=== PATIENT | female | born 2000 | race Caucasian/White ===

== ENCOUNTER 2020-10-03 10:44 | Emergency (ER) | payer MEDICAID, SELFPAY ==
--- NOTE | 2020-10-03 10:54 | ED_ITS ---
HPI - General Adult General Chief complaint: ETOH/Substance Use Stated complaint: crisis/seeking detox Time Seen by Provider: 10/03/20 10:53 Source: patient and EMS Mode of arrival: EMS Limitations: no limitations History of Present Illness HPI narrative: requesting detox from multiple drugs - has been using x 1 year complaint: wants detox Onset (ago): day(s) (today) Relieving factors: none Exacerbating factors: other (drug use) Associated symptoms: denies other symptoms Treatments prior to arrival: none Related Data Allergies Allergy/AdvReac Type Severity Reaction Status Date / Time diphenhydramine Allergy Unknown Unknown Verified 10/03/20 10:55 [From Benadryl] Penicillins Allergy Unknown Unknown Verified 10/03/20 10:55 Review of Systems Review of Systems: Constitutional : No Weight loss, No Fever, No Chills, No Fatigue, No Malaise ENT/Mouth : No sore throat, No Rhinorrhea Eyes: No Eye Pain, No Swelling, No Redness Cardiovascular : No Chest Pain, No SOB, No Dyspnea on Exertion, No Orthopnea, No Edema, No Palpitations Respiratory : No Cough, No Sputum, No Wheezing Gastrointestinal : No Nausea, No Vomiting, No Diarrhea, No Constipation, No abdominal Pain, No Hematochezia, No Melena Genitourinary : No Dysuria, No Urinary Frequency, No Hematuria, Musculoskeletal : No joint pain, No Myalgias, No Joint Swelling Skin : No Skin Lesions, No rash Neuro : No Weakness, No Numbness, No Dizziness, No Headache Psych : pos Anxiety/Panic, No Depression, no SI Heme/Lymph: No Bruising, No Bleeding,No Lymphadenopathy Endocrine : No Polyuria, No Polydipsia All other systems reviewed and are negative PMFSH Past Medical History Attestation statement: The following information was validated with the patient. Medical History Anxiety Bipolar 1 disorder Borderline personality disorder Depression Social History Social History (Updated 10/03/20 @ 11:22 by Ninfa Zayas DO) Alcohol intake: current Alcohol intake frequency: a few times a week Patient Tobacco Use Status: Current everyday Tobacco user Use of substances other than those prescribed or required for medical reasons: Yes Substance Use Type: Crack/Cocaine, Heroin, Marijuana and Other Substance Use Type Other:: pcp Substance Use Frequency: Daily Advance Directives: No Advance Directives Information Provided: Yes Physical Exam Vital Signs: Vital Signs: Last Vital Signs Temp 96.0 F L 10/03/20 11:01 Pulse 86 10/03/20 11:01 Resp 18 10/03/20 11:01 BP 106/63 10/03/20 11:01 Pulse Ox 99 10/03/20 11:01 Body Mass Index 24.3 Appearance: Alert. Oriented X3. No acute distress. Anxious in and out of the bathroom, asking repeatedly for ativan Eyes: Pupils equal, round and reactive to light. ENT: Pharynx normal. Neck: Normal inspection. Neck supple. CVS: Normal heart rate and rhythm. Pulses normal. Respiratory: No respiratory distress. Breath sounds normal. Abdomen: Soft and nontender. Skin: Skin warm and dry. Normal skin color. Normal skin turgor. Extremities: No lower extremity edema. No calf ttp Neuro: Oriented X 3. No motor deficit. No sensory deficit. Course Course Course Narrative: eloped from the ED patient back from the cafeteria with a salad , apparently did not elope? walked back to the ED by security eloped again with all belongings from the ED, argumentative with staff, intrusive into other patient's rooms Medical Decision Making MDM Narrative Medical decision making narrative: 20 pateint with hx of polysubstance abuse requesting clearance, no SI, wants detox, urine, PRN ativan, recovery coaches a pineda and involved. Lab Data Labs: Lab Results 10/03/20 10/03/20 Range/Units 11:21 11:21 Urine Opiates Screen Not Detected (Not Detect) Ur Barbiturates Screen Not Detected (Not Detect) Ur Phencyclidine Scrn Not Detected (Not Detect) Ur Amphetamines Screen Not Detected (Not Detect) U Benzodiazepines Scrn Not Detected (Not Detect) Urine Cocaine Screen Not Detected (Not Detect) U Marijuana (THC) Screen POSITIVE H (Not Detect) COVID-19 (IDANIA) Negative (Negative) COVID-19 Clin Com See Note Discharge Plan Discharge Clinical Impression: Polysubstance abuse Patient Disposition: Elopement
[2020-10-03 11:01] VITALS: BP 106/63; BP 98/68; PULSE 86; PULSE 95; RESP 18; TEMP 35.6; O2SAT 99; BMI 24.3
[2020-10-03 11:48] LABS: COVID-19 Test Negative (Negative); IDNOW Serial# 08D9AD1C
[2020-10-03 12:00] LABS: Amphetamine Screen Urine Not Detected (Not Detect); Barbiturates, Urine Not Detected (Not Detect); Benzodiazepines Screen Urine Not Detected (Not Detect); Cannabinoid Screen Urine POSITIVE (Not Detect); Cocaine Screen Urine Not Detected (Not Detect); Opiate Screen Urine Not Detected (Not Detect); Phencyclidine Screen Urine Not Detected (Not Detect)
[2020-10-03] MEDS: Ondansetron ODT 4 MG TAB.RAPDIS TRANSLINGU (12:05)
[2020-10-03] MEDS: Acetaminophen 325 MG TABLET 650 MG PO (12:06)
[2020-10-03] MEDS: Nicotine 21 MG PATCH.TD24 TRANSDERMA (12:06)
[2020-10-03] MEDS: LORazepam 1 MG TABLET PO (12:07)
--- NOTE | 2020-10-03 12:12 | PC.NURSE ---
pt's natalies locked up in the pod by security. locket # 7.
--- NOTE | 2020-10-03 13:45 | PC.NURSE ---
PT AMB (I) GAIT STEADY WITH HER BUNDLE OF BELONGINGS TOWARDS CAFETERIA. AWARE
--- NOTE | 2020-10-03 13:53 | PC.NURSE ---
PT CYN (I) GAIT STEADY WITH A SALAD FROM THE [facility] AND HER BUNDLE OF BELONGINGS TO ROOM 6H. AWARE.
--- NOTE | 2020-10-03 14:00 | PC.NURSE ---
PT ATE 100% X 2. PER PT REQUEST.
--- NOTE | 2020-10-03 14:20 | PC.NURSE ---
PT NOT AT BEDSIDE. PT ELOPED WITH HER BUNDLE OF BELONGINGS AWARE
== END 2020-10-03 14:33 | disposition left against medical advice (07) ==
PROVIDERS: Emergency Provider Emergency Medicine
DX: F11.10 Opioid abuse, uncomplicated (principal); F14.10 Cocaine abuse, uncomplicated; F12.10 Cannabis abuse, uncomplicated; Z71.51 Drug abuse counseling and surveillance of drug abuser; Z20.822 Contact with and (suspected) exposure to COVID-19; Z79.899 Other long term (current) drug therapy
CPT/HCPCS: 36415; 80307; 87635; 99284

== ENCOUNTER 2020-10-08 21:49 | Emergency (ER) | payer MEDICAID, SELFPAY ==
--- NOTE | 2020-10-08 22:31 | PC.NURSE ---
PT CALLED FOR TRIAGE, NO RESPONSE. PT WAS LAST SEEN IN PARKING LOT.
--- NOTE | 2020-10-08 22:50 | PC.NURSE ---
PT CALLED A SECOND TIME, STILL HAS NOT RETURNED.
== END 2020-10-08 23:19 | disposition left against medical advice (07) ==
PROVIDERS: Emergency Provider Emergency Medicine
DX: F14.90 Cocaine use, unspecified, uncomplicated (principal); F11.90 Opioid use, unspecified, uncomplicated; F12.90 Cannabis use, unspecified, uncomplicated; F17.210 Nicotine dependence, cigarettes, uncomplicated

== ENCOUNTER 2020-10-08 23:21 | Emergency (ER) | payer MEDICAID, SELFPAY ==
[2020-10-08 23:40] VITALS: BP 110/69; PULSE 80; RESP 18; TEMP 36.1; O2SAT 98; BMI 27.3
--- NOTE | 2020-10-09 00:45 | ED.PSYCH ---
HPI - Psych General Chief Complaint: ETOH/Substance Use Stated Complaint: seeking detox Time Seen by Provider: 10/09/20 00:23 Source: patient and family Mode of arrival: ambulatory Limitations: no limitations History of Present Illness MD complaint: substance abuse Onset (ago): year(s) Duration: constant History of same: Yes Relieving factors: none Exacerbating factors: drug use Context: recent drug abuse Associated psychiatric symptoms: none Associated symptoms: denies other symptoms Treatments prior to arrival: none Related Data Allergies Allergy/AdvReac Type Severity Reaction Status Date / Time diphenhydramine Allergy Unknown Unknown Verified 10/03/20 10:55 [From Benadryl] Penicillins Allergy Unknown Unknown Verified 10/03/20 10:55 Review of Systems Review of Systems: Constitutional : No Fever, No Chills ENT/Mouth : No Ear Pain, No Nasal Congestion, No sore throat Eyes: No Eye Pain, No Swelling, No Redness Cardiovascular : No Chest Pain, No SOB Respiratory : No Cough, No Sputum, No Dyspnea Gastrointestinal : No Nausea, No Vomiting, No Diarrhea, No Hematochezia, No Melena Genitourinary : No Dysuria, No Urinary Frequency, No Hematuria Musculoskeletal : No Myalgias Skin : No Skin Lesions, No rash Neuro : No Weakness, No Numbness, No Paresthesias, No Dizziness, No Headache Psych : positive Anxiety, positive Depression, no SI/HI Heme/Lymph: No Lymphadenopathy Endocrine : No Polyuria, No Polydipsia All other systems reviewed and are negative [facility] Past Medical History Attestation statement: The following information was validated with the patient. Medical History Anxiety Bipolar 1 disorder Borderline personality disorder Depression Social History Social History Alcohol intake: current Alcohol intake frequency: a few times a week Patient Tobacco Use Status: Current everyday Tobacco user Substance Use Type: Crack/Cocaine, Heroin, Marijuana and Other Advance Directives: No Patient : No Physical Exam Vital Signs: Vital Signs: Last Vital Signs Temp 97.0 F 10/08/20 23:40 Pulse 80 10/08/20 23:40 Resp 18 10/08/20 23:40 BP 110/69 10/08/20 23:40 Pulse Ox 98 10/08/20 23:40 Body Mass Index 27.3 Appearance: Alert. Oriented X3. No acute distress. Eyes: Pupils equal, round and reactive to light. ENT: Pharynx normal. Neck: Normal inspection. Neck supple. CVS: Normal heart rate and rhythm. Pulses normal. Respiratory: No respiratory distress. Breath sounds normal. Abdomen: Soft and nontender. Skin: Skin warm and dry. Normal skin color. Normal skin turgor. Extremities: No lower extremity edema. No calf ttp Neuro: Oriented X 3. No motor deficit. No sensory deficit. CN2-12 intact Psych: pos anxiety, no SI/HI, no AH/VH Course Course Course Narrative: Physician observation started at 528am Patient placed in physician observation because the patient needed more time for CARE team and recovery coaches. At the time observation was started the patient's vitals were stable, patient is alert and oriented , Neuro: nonfocal, CV RRR, Lungs clear signed out pending recovery coaches and care team MDM - Psych MDM Narrative Medical decision making narrative: 20 yo patient with hx of polysubtance abuse, no SI, no medical complaints wants detox, very labile walking in and out of triage/ED treatment area, sister at bedside with section 35 form. Discharge Plan Discharge Clinical Impression: Polysubstance abuse Instructions: Polysubstance Abuse (ED) Additional Instructions: return to ED for any worsening symptoms or concerns please go to detox
--- NOTE | 2020-10-09 01:23 | MHC.CARE ---
CARE team support requested by ED provider for pt who was brought to ED by family for detox placement. He/him pronouns. Goes by Owen. He reported that he was supposed to start suboxone through [facility], but wasn't able to parts picker the prescription. No history of detox admissions or other [facility] treatment. Sister is at bedside and planning to petition for a Section 35 in the morning. Discussed that if pt is voluntary for treatment that it would mean a shorter commitment, and that pt is also able to petition for their own commitment if they chose to do so. Tox screen on 10/03/2020 was only positive for marijuana, despite pt reported that he had used opiates, cocaine, and benzodiazepines as well. He is making the same statements about substances used at this time. Plan is to remain in ED until the morning. Recovery support will meet with pt if he is still in the hospital at that time.
--- NOTE | 2020-10-09 01:25 | PC.NURSE ---
PT RESTING IN HALLWAY BED, SISTER AT BEDSIDE. CARE TEAM SPEAKING TO PATIENT. PT AWARE WE NEED A URINE SAMPLE.
--- NOTE | 2020-10-09 01:58 | PC.NURSE ---
PT SLEEPING IN BED, [place]. SISTER AT BEDSIDE. PLAN IS TO LET PT AND FAMILY STAY UNTIL MORNING TO SPEAK WITH [facility]. SISTER PLANS TO TAKE PT TO COURT IN THE MORNING FOR SECTION 35.
--- NOTE | 2020-10-09 07:00 | PC.NURSE ---
Patient is asleep in bed in no distress. Pt respirations are even and nonlabored
[2020-10-09 10:24] VITALS: BP 111/55; PULSE 55; RESP 17; O2SAT 98
--- NOTE | 2020-10-09 10:25 | PC.NURSE ---
Patient is awake and in no distress. Pt states she does not want any breakfast. Pt given Juice and milk to drink.
== END 2020-10-09 10:45 | disposition home or self-care (01) ==
PROVIDERS: Emergency Provider Emergency Medicine; PCP Nurse Practitioner Family
DX: F10.10 Alcohol abuse, uncomplicated (principal); Y90.9 Presence of alcohol in blood, level not specified; F11.90 Opioid use, unspecified, uncomplicated; F14.90 Cocaine use, unspecified, uncomplicated; F12.90 Cannabis use, unspecified, uncomplicated; F17.210 Nicotine dependence, cigarettes, uncomplicated; Z71.6 Tobacco abuse counseling; Z79.899 Other long term (current) drug therapy
CPT/HCPCS: 99284

== ENCOUNTER 2022-08-22 16:31 | Inpatient (IN) | payer OTHER, SELFPAY ==
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
--- NOTE | ~2022-08-22 | US_ITS ---
EXAMINATION: US PELVIS CLINICAL INFORMATION: Pelvic pain; the patient is currently having her menstrual period. COMPARISON: None available. TECHNIQUE: Ultrasound of the pelvis is performed using both transabdominal and transvaginal transducers along with Doppler. Transvaginal imaging is performed due to inadequate visualization transabdominally. FINDINGS: Uterus: The uterus is anteverted and measures 6.7 x 2.4 x 2.8 cm. The double wall endometrial thickness is 0.1 mm. The uterus is smooth in contour and has normal myometrial echogenicity. No visible fibroid. Adnexa: Both ovaries are visualized. There is normal color flow to the adnexa. There is no ovarian torsion. There is no pelvic ascites or fluid collection. A 3.3 x 1.6 x 2.8 cm simple right paraovarian cyst is seen. Right ovary measures 2.0 x 2.1 x 1.8 cm, volume 4.0 mL. Left ovary measures 1.9 x 1.2 x 1.4 cm, volume 1.7 mL. US/US pelvic and transvaginal IMPRESSION: A 3.3 cm in maximal diameter simple right paraovarian cyst is incidentally noted. The examination is otherwise unremarkable.
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
--- NOTE | 2022-08-22 17:10 | P.CONHOSP_ITS ---
History of Present Illness Data of Consult Service Date: 08/22/22 Primary Care Provider: Judie Owens NP HPI Reason for consult: Admission H&P Pt is a 22-year-old assigned female at transitioning to male with a PMH significant for?autism, ADHD, and bipolar disorder who is admitted to [facility] psychiatry unit after being found wandering around and question of having a dissociative episode. Patient was apparently acting as if responding to internal stimuli and experiencing facial in auditory hallucinations. At [facility] ED patient was found to have a leukocytosis of 16.1 and an acute UTI and candiduria. Medical consult for admission H&P. ?Patient states she has no acute medical complaints at this time. Denies fever, chills, nausea, vomiting. No shortness of breath. Denies chest pain/pressure, palpitations. Review of Systems Review of Systems: No acute medical complaints at this time Yes all other systems are reviewed and are negative [facility] Medical History Anxiety Bipolar 1 disorder Bipolar disorder with psychotic features Borderline personality disorder Depression PTSD (post-traumatic stress disorder) Social History Household Members: Family Housing: House Do you presently have visiting nurse or other home services: Yes Alcohol intake: current Alcohol intake frequency: a few times a week Patient Tobacco Use Status: Never used Tobacco Use of substances other than those prescribed or required for medical reasons: Yes Substance Use Type: Marijuana Substance Use Frequency: Daily Last Used Substance: Days (ago) Currently Displaying Signs/Symptoms of Drug Intoxication Withdrawal: No Any prior treatment program specific to substance use: No Have you been hit, kicked, punched, or otherwise hurt by someone within the past year? If so, by whom?: No Spiritual Healthcare Practices: N/A [employer] Healthcare Practices: N/A Cultural Healthcare Practices: N/A Advance Directives: No Advance Directives Information Provided: No Do you have thoughts of harming others: None Do you have a plan to hurt others: No Plan Recently lost weight without trying: No How much weight loss: Not applicable Eating poorly because of decreased appetite: No Nutrition screen score: 0 Nutrition Risks: No Nutritional Risk Patient : No : No Poor oral hygiene: No Meds Allergies Allergy/AdvReac Type Severity Reaction Status Date / Time diphenhydramine Allergy Unknown Unknown Verified 10/03/20 10:55 [From Benadryl] Penicillins Allergy Unknown Unknown Verified 10/03/20 10:55 Active Medications: Current Medications Acetaminophen (Acetaminophen 325 Mg Tablet) 650 mg PO Q6H PRN PRN Reason: Headache/Pain Mild Scale (1-3) Al Hydroxide/Mg Hydroxide (Magnesium Hydrox/Alum Hydrox 30 Ml Oral.Susp) 30 ml PO Q6H PRN PRN Reason: Heartburn/Nausea Cefuroxime Axetil (Cefuroxime Axetil 250 Mg Tablet) 250 mg PO BID [facility] Stop: 08/29/22 09:01 Clonidine HCl (Clonidine Hcl 0.1 Mg Tablet) 0.1 mg PO TID [facility]; Protocol Haloperidol (Haloperidol 5 Mg Tablet) 5 mg PO TID PRN PRN Reason: psychosis, agitation Hydroxyzine HCl (Hydroxyzine Hcl 25 Mg Tablet) 25 mg PO Q6H PRN PRN Reason: Anxiety Lorazepam (Lorazepam 1 Mg Tablet) 1 mg PO Q4H PRN PRN Reason: psychosis, agitation Magnesium Hydroxide (Milk Of Magnesia 30 Ml Oral.Susp) 30 ml PO DAILY PRN PRN Reason: Constipation Oxcarbazepine (Oxcarbazepine 300 Mg Tablet) 300 mg PO BID [facility] Trazodone HCl (Trazodone Hcl 100 Mg Tablet) 100 mg PO BEDTIME [facility] Home Medications Medication Instructions Recorded Confirmed Last Taken Type albuterol sulfate 90 mcg/actuation 2 puff inhalation Q4H PRN wheezing 08/22/22 08/22/22 Unknown History aerosol inhaler (Ventolin HFA) chlordiazepoxide HCl 25 mg capsule 25 mg PO BID 08/22/22 08/22/22 Unknown History chlorpromazine 100 mg tablet 100 mg PO BEDTIME 08/22/22 08/22/22 Unknown History clonidine HCl 0.1 mg tablet 0.1 mg PO TID 08/22/22 08/22/22 Unknown History lorazepam 1 mg tablet 1 mg PO BID anxiety 08/22/22 08/22/22 Unknown History melatonin 3 mg tablet 9 mg PO BEDTIME insomnia 08/22/22 08/22/22 Unknown History oxcarbazepine 300 mg tablet 300 mg PO BID 08/22/22 08/22/22 Unknown History quetiapine 100 mg tablet 100 mg PO BID depressive disorder 08/22/22 08/22/22 Unknown History quetiapine 50 mg tablet 50 mg PO BID depressive disorder 08/22/22 08/22/22 Unknown History sennosides 8.6 mg tablet (senna) 17.2 mg PO DAILY 08/22/22 08/22/22 Unknown History trazodone 100 mg tablet 100 mg PO BEDTIME 08/22/22 08/22/22 Unknown History trazodone 50 mg tablet 50 mg PO BEDTIME PRN insomnia 08/22/22 08/22/22 Unknown History triamcinolone acetonide 0.1 % appl topical TID PRN skin 08/22/22 Unknown Histor y topical cream Physical Exam Vital Signs and Narrative: Vital Signs: Constitutional: Alert, in no acute distress. Mental Status: Oriented to person, place and time. Eyes: Pupils are equal, round, and reactive to light. Strabismus of right eye noted. Ear, Nose, and Throat: Oropharynx clear, mucous membranes moist. Ears and nose without deformities. Trachea midline. Respiratory: Clear to auscultation bilaterally. No wheezing, rales, or rhonchi. Cardiovascular: S1, S2 regular. No murmurs, rubs, or gallops. Gastrointestinal: Abdomen soft, non-tender, non-distended. Normal bowel sounds. Neurologic: Cranial nerves II-XII are grossly intact bilaterally. No focal neurological deficits. Moves all extremities spontaneously. Skin: No rashes or lesions noted. Musculoskeletal: No cyanosis or clubbing. Extremities: No edema. Psychiatric: Emotionally labile. Avoiding direct eye contact. Assessment and Plan (1) Routine history and physical examination of adult: Status: Acute Plan Pt is a 22-year-old assigned female at transitioning to male with a PMH significant for?autism, ADHD, and bipolar disorder who is admitted to [facility] psychiatry unit after being found wandering around and question of having a dissociative episode. Patient was apparently acting as if responding to internal stimuli and experiencing facial in auditory hallucinations. At [facility] ED patient was found to have a leukocytosis of 16.1 and an acute UTI and candiduria. Medical consult for admission H&P. ?Patient states she has no acute medical complaints at this time. Mood disorder Plan as per pyschiatry UTI Patient found have UTI on 08/21/2022 at [facility] ED Discharged on cefdinir 300 mg p.o. b.i.d. x4 days Patient currently with no symptoms: No dysuria, polyuria Continue antibiotics Strabismus Patient with noted strabismus on exam Has seen an apprentice technician outpatient, but not for a while Patient said she used to have glasses but they were still Patient should follow-up patient with optometry Thank you for allowing us to participate in the care of this patient. Signing off at this time. Please let us know if there are any acute complaints or questions. Time Spent With Patient Time: Total time managing care of this patient today ____ minutes.
[2022-08-22 17:12] VITALS: BP 121/71; PULSE 71; RESP 16; TEMP 36.6; O2SAT 98
[2022-08-22 17:13] VITALS: BMI 31.6
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
[2022-08-22] MEDS: LORazepam 1 MG TABLET PO (23:50)
[2022-08-22] MEDS: traZODone HCL 100 MG TABLET PO (23:52)
[2022-08-23] MEDS: LORazepam 1 MG TABLET PO ×4 (06:39→21:41)
[2022-08-23 08:15] LABS: Estimated Average Glucose 114 mg/dL; Hemoglobin A1c % 5.6 %
[2022-08-23 08:25] LABS: Cholesterol 141 mg/dL; HDL Cholesterol 39 mg/dL; LDL Cholesterol Calculated 91 mg/dl; Magnesium 1.9 mg/dL (1.6-2.6); Triglycerides 57 mg/dL
[2022-08-23 08:36] LABS: Free T4 (Free Thyroxine) 1.24 ng/dL (0.71-1.85); Thyroid Stimulating Hormone 1.09 uIU/mL (0.32-4.0)
[2022-08-23 08:52] LABS: Folate 10.2 ng/mL (> or = 4.0); Vitamin B12 474 pg/mL (200-900)
[2022-08-23] MEDS: hydrOXYzine HCL 25 MG TABLET PO (08:54)
[2022-08-23 09:00] VITALS: BP 132/76; PULSE 88; RESP 18; TEMP 36.4; O2SAT 97
--- NOTE | 2022-08-23 09:00 | ECG_ITS ---
Test Reason : check qtc Blood Pressure : / mmHG Vent. Rate : 075 BPM Atrial Rate : 075 BPM P-R Int : 124 ms QRS Dur : 084 ms QT Int : 368 ms P-R-T Axes : 012 071 020 degrees QTc Int : 410 ms Normal sinus rhythm with sinus arrhythmia Normal ECG No previous ECGs available Referred By: Antonieta Vanegas Electronically Signed By:VICKIE GIRALDO
[2022-08-23] MEDS: Nicotine Polacrilex Lozenge 4 MG LOZENGE BUCCAL (12:01)
[2022-08-23] MEDS: Cariprazine HCl 3 MG CAPSULE PO (12:02)
[2022-08-23] MEDS: Phenazopyridine HCL 100 MG TABLET PO ×2 (12:12→23:24)
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
[2022-08-23] MEDS: cloNIDine HCL 0.1 MG TABLET PO (15:38)
[2022-08-23] MEDS: Nicotine Polacrilex 2 MG GUM 4 MG BUCCAL ×2 (15:39→22:36)
[2022-08-23 18:00] VITALS: BP 110/59; PULSE 83; TEMP 36.2; O2SAT 98
--- NOTE | 2022-08-23 22:51 | PC.NURSE ---
Patient refused HS meds and said they wanted Librium rather than Ativan, Dr. Malick Braden, distribution operations manager doctor aware. No new orders received. Patient did take Ativan as a prn.
[2022-08-23] MEDS: traZODone HCL 100 MG TABLET PO ×2 (23:25)
[2022-08-23] MEDS: metroNIDAZOLE 500 MG TABLET PO ×2 (23:25)
--- NOTE | 2022-08-23 23:26 | PC.NURSE ---
Patient did come up to the medication window at 2320 and ask for Ceftin, Flagyl, Trazadone and Peridium after first refusing them.
[2022-08-23] MEDS: Magnesium Hydrox/Alum Hydrox 30 ML ORAL.SUSP PO (23:51)
[2022-08-24] MEDS: metroNIDAZOLE 500 MG TABLET PO ×2 (07:59→20:59)
[2022-08-24] MEDS: Cariprazine HCl 3 MG CAPSULE PO (07:59)
[2022-08-24] MEDS: Sennosides 8.6 MG TABLET 17.2 MG PO (07:59)
[2022-08-24] MEDS: cloNIDine HCL 0.1 MG TABLET PO ×3 (08:00→20:59)
[2022-08-24 08:03] VITALS: BP 145/76; PULSE 115; RESP 18; TEMP 36.7; O2SAT 98
[2022-08-24 08:30] LABS: HCG Quantitative < 2 mIU/mL
[2022-08-24] MEDS: Nicotine Polacrilex 2 MG GUM 4 MG BUCCAL ×5 (09:44→21:01)
[2022-08-24] MEDS: chlordiazePOXIDE HCl 25 MG CAPSULE PO ×2 (09:44→17:24)
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
[2022-08-24] MEDS: Phenazopyridine HCL 100 MG TABLET PO ×2 (12:19→17:27)
[2022-08-24] MEDS: LORazepam 1 MG TABLET PO ×2 (18:01→20:59)
[2022-08-24] MEDS: hydrOXYzine HCL 25 MG TABLET PO (18:08)
[2022-08-24 20:58] VITALS: BP 144/86; PULSE 111; TEMP 36.1
[2022-08-24] MEDS: traZODone HCL 100 MG TABLET PO (20:59)
[2022-08-24] MEDS: chlorproMAZINE HCl 100 MG TABLET PO (20:59)
[2022-08-24] MEDS: Melatonin 3 MG TABLET 9 MG PO (20:59)
[2022-08-24] MEDS: Acetaminophen 325 MG TABLET 650 MG PO (21:18)
[2022-08-25] MEDS: Cariprazine HCl 3 MG CAPSULE PO (07:50)
[2022-08-25] MEDS: Sennosides 8.6 MG TABLET 17.2 MG PO (07:50)
[2022-08-25] MEDS: metroNIDAZOLE 500 MG TABLET PO ×2 (07:50→19:18)
[2022-08-25] MEDS: cloNIDine HCL 0.1 MG TABLET PO ×3 (07:51→19:18)
[2022-08-25] MEDS: LORazepam 1 MG TABLET PO ×3 (07:51→19:19)
[2022-08-25] MEDS: Nicotine Polacrilex 2 MG GUM 4 MG BUCCAL ×5 (07:55→20:40)
[2022-08-25 08:00] VITALS: BP 122/80; PULSE 95; RESP 18; TEMP 36.2; O2SAT 98
[2022-08-25] MEDS: hydrOXYzine HCL 25 MG TABLET PO ×3 (09:32→22:08)
[2022-08-25] MEDS: Acetaminophen 325 MG TABLET 650 MG PO (13:00)
[2022-08-25] MEDS: chlorproMAZINE HCl 25 MG TABLET 50 MG PO ×2 (14:29→18:29)
[2022-08-25 14:39] VITALS: BP 131/71; PULSE 119
[2022-08-25 19:16] VITALS: BP 112/73; PULSE 112; TEMP 36.2
[2022-08-25] MEDS: chlorproMAZINE HCl 100 MG TABLET PO (19:18)
[2022-08-25] MEDS: Melatonin 3 MG TABLET 9 MG PO (19:18)
[2022-08-25] MEDS: traZODone HCL 100 MG TABLET PO (19:18)
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
--- NOTE | 2022-08-25 22:10 | PC.NURSE ---
Addendum entered by Jane Sargent RN 08/25/22 22:41: Pt came to RN and apologized for outburst, went to bed after Original Note: Pt became upset when told he couldn't have his hoodies. Pt began running down the beard, tried to get behind nurses station, yelling, and slamming doors. After a few minutes pt allowed an RN to explain the new no ross policy and that it can be reviewed in the morning with team. Pt offered PRN atarax and accepted. Will continue to monitor.
[2022-08-25] MEDS: Phenazopyridine HCL 100 MG TABLET PO (22:33)
[2022-08-26] MEDS: LORazepam 1 MG TABLET PO ×4 (02:06→22:35)
[2022-08-26 08:10] VITALS: BP 118/58; PULSE 89; RESP 18; TEMP 36.1; O2SAT 95
[2022-08-26] MEDS: Sennosides 8.6 MG TABLET 17.2 MG PO (08:36)
[2022-08-26] MEDS: metroNIDAZOLE 500 MG TABLET PO ×2 (08:36→22:09)
[2022-08-26] MEDS: cloNIDine HCL 0.1 MG TABLET PO ×3 (08:36→22:09)
[2022-08-26] MEDS: Cariprazine HCl 3 MG CAPSULE PO (08:36)
[2022-08-26] MEDS: OXcarbazepine 300 MG TABLET 600 MG PO ×2 (08:37→22:08)
[2022-08-26] MEDS: Nicotine Polacrilex 2 MG GUM 4 MG BUCCAL ×5 (08:58→22:35)
[2022-08-26 10:05] LABS: HIV AB/AG Nonreactive (Nonreactive); HIV Num 1 0.06 S/CO (0.00-0.99)
[2022-08-26 10:08] LABS: Syphilis Screen Nonreactive (Nonreactive)
[2022-08-26] MEDS: oxyCODONE HCl Immed Release 5 MG TABLET 10 MG PO (14:28)
--- NOTE | 2022-08-26 14:49 | PC.NURSE ---
Hospitalist Irma notified of consult at [id number] on 08/26/22.
[2022-08-26] MEDS: hydrOXYzine HCL 25 MG TABLET PO (16:17)
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
[2022-08-26 17:31] VITALS: BP 119/77; PULSE 107; TEMP 36.6; O2SAT 100
[2022-08-26] MEDS: chlorproMAZINE HCl 100 MG TABLET PO (22:09)
[2022-08-26] MEDS: traZODone HCL 100 MG TABLET PO (22:09)
[2022-08-26] MEDS: Melatonin 3 MG TABLET 9 MG PO (22:09)
[2022-08-27] MEDS: LORazepam 1 MG TABLET PO ×4 (01:33→20:15)
[2022-08-27] MEDS: chlorproMAZINE HCl 25 MG TABLET 50 MG PO ×2 (01:33→18:01)
--- NOTE | 2022-08-27 01:44 | PC.NURSE ---
During routine fifteen minute checks at 0115, t/w noticed a pair of headphones on pt's chest. As t/w retrieved the headphones, pt nitin from his bed. Pt demanded the return of his headphones and reported that they belonged to him. T/w explained that headphones were collected at the nurses' station on the overnight shifts. Pt charged the door to the nurses' station as t/w entered. Pt stood in the doorway of the nurses' station and then lunged for the headphones but did not reach them. Pt ran back to his room while screaming. Pt slammed the door to his room. Pt began throwing linens and food objects on the floor while screaming. Pt took a laundry bin filled with books from the unit library and stood by the entrance to the unit. Pt began banging on the door. RN verbally redirected pt, and pt accepted PO meds.
[2022-08-27] MEDS: Nicotine Polacrilex 2 MG GUM 4 MG BUCCAL ×6 (01:54→21:55)
[2022-08-27] MEDS: hydrOXYzine HCL 25 MG TABLET PO ×3 (01:54→17:18)
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
[2022-08-27 09:05] VITALS: BP 132/76; PULSE 98; RESP 18; TEMP 35.8; O2SAT 100
[2022-08-27] MEDS: Cariprazine HCl 3 MG CAPSULE PO (09:05)
[2022-08-27] MEDS: OXcarbazepine 300 MG TABLET 600 MG PO ×2 (09:05→21:51)
[2022-08-27] MEDS: cloNIDine HCL 0.1 MG TABLET PO ×3 (09:06→21:51)
[2022-08-27] MEDS: Sennosides 8.6 MG TABLET 17.2 MG PO (09:06)
[2022-08-27] MEDS: metroNIDAZOLE 500 MG TABLET PO ×2 (09:06→21:52)
[2022-08-27] MEDS: Phenazopyridine HCL 100 MG TABLET PO (09:15)
[2022-08-27] MEDS: oxyCODONE HCl Immed Release 5 MG TABLET 10 MG PO (14:36)
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
[2022-08-27 16:56] VITALS: BP 112/55; PULSE 93; RESP 20; TEMP 36.6; O2SAT 95
--- NOTE | 2022-08-27 17:48 | PC.NURSE ---
retracted 3 day 08/27, placed in a new 3 day 08/27 at 17:30 Friday, up on 08/30
[2022-08-27] MEDS: Melatonin 3 MG TABLET 9 MG PO (21:51)
[2022-08-27] MEDS: chlorproMAZINE HCl 100 MG TABLET PO (21:55)
[2022-08-28] MEDS: Sennosides 8.6 MG TABLET 17.2 MG PO (08:57)
[2022-08-28] MEDS: Cariprazine HCl 3 MG CAPSULE 6 MG PO (08:57)
[2022-08-28] MEDS: OXcarbazepine 300 MG TABLET 600 MG PO (08:58)
[2022-08-28] MEDS: metroNIDAZOLE 500 MG TABLET PO ×2 (08:58→19:54)
[2022-08-28] MEDS: cloNIDine HCL 0.1 MG TABLET PO ×3 (08:59→19:57)
[2022-08-28] MEDS: LORazepam 1 MG TABLET PO ×2 (09:02→13:43)
[2022-08-28 09:11] VITALS: BP 142/88; PULSE 141; RESP 18; TEMP 36.6; O2SAT 99
[2022-08-28] MEDS: Nicotine Polacrilex 2 MG GUM 4 MG BUCCAL ×4 (09:31→20:05)
[2022-08-28] MEDS: hydrOXYzine HCL 25 MG TABLET PO ×2 (09:32→20:05)
[2022-08-28 14:22] VITALS: BP 104/71; PULSE 123
--- NOTE | 2022-08-28 15:10 | PM.GYNCN ---
MEDICAL EXAMINER - CN: HPI Data of Consult Consult date: 08/28/22 Requesting Physician: Antonieta Vanegas Primary Care Provider: Judie Owens RADIOLOGY RESIDENT Consult Narrative Reason for consult: pelvic pain Narrative: Malou Pitt (Kenny) is a 22 year old female/trans pt., consult for pelvic pain, cramping lower pelvis. Reports history of irregular menses, recently off testosterone supplements. First pelvic examination. Accompanied by staffing operations manager from . Chaperoned by Anika Jerry, MENTAL HEALTH ASSISTANT/OB. History of ovarian cysts, last seen at [facility] 2 yrs. ago for cysts. Denies any symptoms of BV, no odor, itching, dysuria, or frequency. Past history of white discharge. Currently bleeding today. cc:: CC: Antonieta Vanegas TAX SENIOR ASSOCIATE - Review of Systems Review of Systems ROS Unobtainable: All systems reviewed & are unremarkable except as noted in HPI and below Endocrine: Reports Irregular periods and Excessive hair growth (testosterone use) Gastrointestinal: Reports Constipation Genitourinary: Reports Other (urinary hesitation) Hematological/Lymphatic: Reports Other (irregular bleeding) Breast: Reports Other (deferred) OB [facility] Past Medical History Medical History Anxiety Bipolar 1 disorder Bipolar disorder with psychotic features Borderline personality disorder Depression Dysuria Pelvic pain PTSD (post-traumatic stress disorder) Social History Social History Household Members: Family Housing: House Do you presently have visiting nurse or other home services: Yes Alcohol intake: current Alcohol intake frequency: a few times a week Patient Tobacco Use Status: Never used Tobacco Substance Use Type: Marijuana service: No Sexual orientation: nonbinary Meds Allergies Allergy/AdvReac Type Severity Reaction Status Date / Time diphenhydramine Allergy Unknown Unknown Verified 08/28/22 14:34 [From Benadryl] Penicillins Allergy Unknown Unknown Verified 08/28/22 14:34 Active Medications: Current Medications Acetaminophen (Acetaminophen 325 Mg Tablet) 650 mg PO Q6H PRN PRN Reason: Headache/Pain Mild Scale (1-3) Last Admin: 08/25/22 13:00 Dose: 650 mg Al Hydroxide/Mg Hydroxide (Magnesium Hydrox/Alum Hydrox 30 Ml Oral.Susp) 30 ml PO Q6H PRN PRN Reason: Heartburn/Nausea Last Admin: 08/23/22 23:51 Dose: 30 ml Albuterol Sulfate (Albuterol Sulfate 90 Mcg 8 Gm Inhaler) 1 puff INHALE RQ4H PRN PRN Reason: wheeze Cariprazine (Cariprazine Hcl 3 Mg Capsule) 6 mg PO DAILY [facility] Last Admin: 08/28/22 08:57 Dose: 6 mg Cefuroxime Axetil (Cefuroxime Axetil 250 Mg Tablet) 250 mg PO BID [facility] Stop: 08/29/22 09:01 Last Admin: 08/28/22 08:59 Dose: 250 mg Chlorpromazine HCl (Chlorpromazine Hcl 100 Mg Tablet) 100 mg PO BEDTIME [facility] Last Admin: 08/27/22 21:55 Dose: 100 mg Chlorpromazine HCl (Chlorpromazine Hcl 25 Mg Tablet) 50 mg PO QID PRN PRN Reason: psychosis/flashbacks Last Admin: 08/27/22 18:01 Dose: 50 mg Clonidine HCl (Clonidine Hcl 0.1 Mg Tablet) 0.1 mg PO TID [facility]; Protocol Last Admin: 08/28/22 14:21 Dose: 0.1 mg Hydroxyzine HCl (Hydroxyzine Hcl 25 Mg Tablet) 25 mg PO Q6H PRN PRN Reason: Anxiety Last Admin: 08/28/22 09:32 Dose: 25 mg Lorazepam (Lorazepam 1 Mg Tablet) 1 mg PO Q4H PRN PRN Reason: psychosis, agitation Last Admin: 08/28/22 13:43 Dose: 1 mg Magnesium Hydroxide (Milk Of Magnesia 30 Ml Oral.Susp) 30 ml PO DAILY PRN PRN Reason: Constipation Melatonin (Melatonin 3 Mg Tablet) 9 mg PO BEDTIME [facility] Last Admin: 08/27/22 21:51 Dose: 9 mg Metronidazole (Metronidazole 500 Mg Tablet) 500 mg PO BID [facility] Stop: 08/30/22 09:00 Last Admin: 08/28/22 08:58 Dose: 500 mg Nicotine Polacrilex (Nicotine Polacrilex 2 Mg Gum) 4 mg BUCCAL Q2H PRN PRN Reason: Nicotine Cravings Last Admin: 08/28/22 12:24 Dose: 4 mg Oxcarbazepine (Oxcarbazepine 300 Mg Tablet) 600 mg PO BID [facility] Last Admin: 08/28/22 08:58 Dose: 600 mg Senna (Sennosides 8.6 Mg Tablet) 17.2 mg PO DAILY [facility] Last Admin: 08/28/22 08:57 Dose: 17.2 mg Trazodone HCl (Trazodone Hcl 100 Mg Tablet) 100 mg PO BEDTIME [facility] Last Admin: 08/26/22 22:09 Dose: 100 mg Home Medications Medication Instructions Recorded Confirmed Last Taken Type albuterol sulfate 90 mcg/actuation 2 puff inhalation Q4H PRN wheezing 08/22/22 08/22/22 Unknown History aerosol inhaler (Ventolin HFA) chlordiazepoxide HCl 25 mg capsule 25 mg PO BID 08/22/22 08/22/22 Unknown History chlorpromazine 100 mg tablet 100 mg PO BEDTIME 08/22/22 08/22/22 Unknown History clonidine HCl 0.1 mg tablet 0.1 mg PO TID 08/22/22 08/22/22 Unknown History lorazepam 1 mg tablet 1 mg PO BID anxiety 08/22/22 08/22/22 Unknown History melatonin 3 mg tablet 9 mg PO BEDTIME insomnia 08/22/22 08/22/22 Unknown History oxcarbazepine 300 mg tablet 300 mg PO BID 08/22/22 08/22/22 Unknown History quetiapine 100 mg tablet 100 mg PO BID depressive disorder 08/22/22 08/22/22 Unknown History quetiapine 50 mg tablet 50 mg PO BID depressive disorder 08/22/22 08/22/22 Unknown History sennosides 8.6 mg tablet (senna) 17.2 mg PO DAILY 08/22/22 08/22/22 Unknown History trazodone 100 mg tablet 100 mg PO BEDTIME 08/22/22 08/22/22 Unknown History trazodone 50 mg tablet 50 mg PO BEDTIME PRN insomnia 08/22/22 08/22/22 Unknown History triamcinolone acetonide 0.1 % appl topical TID PRN skin 08/22/22 Unknown History topical cream MEDICAL EXAMINER Physical Exam Vitals Vital signs: Temp Pulse Resp BP Pulse Ox O2 Del Method 97.8 F 123 H 18 104/71 99 Room Air 08/28/22 09:11 08/28/22 14:22 08/28/22 09:11 08/28/22 14:22 08/28/22 09:11 08/28/22 09:11 BMI result Body Mass Index 31.6 Constitutional General Appearance: Healthy appearing and Well-nourished Psychiatric Orientation: to place and to person Mood and Affect: Other (groggy) Skin Appearance: No rashes Abdomen Auscultation/Inspection/Palpation: Soft, Non-distended, No tenderness and No masses Hernia: Non palpated Female Genitalia (Pelvic) Bladder/Urethra: Normal meatus Vulva: No lesions Vagina: Nontender Cervix: Grossly normal, No cervical motion tenderness and Discharge (moderate dark red blood) Uterus: Normal size, Normal shape and Nontender Adnexa/Parametria: Adnexal Tenderness: None and Adnexal Mass: None Assessment and Plan (1) Pelvic pain: Status: Acute Plan Gc/Ct and BV panel, pap, plan pelvic US Release records to outpatient TAX SENIOR ASSOCIATE office for follow up care pending results. All of his questions and concerns were addressed to the best of my ability and shared decision making. He is agreeable to the plan of care. Time Spent With Patient Time: Total time managing care of this patient today __30__ minutes.
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
[2022-08-28 17:18] LABS: Chlamydia Pneumoniae IgA <1:16 titer (<1:16); Chlamydia Pneumoniae IgG <1:64 titer (<1:64); Chlamydia Pneumoniae IgM <1:10 titer (<1:10); Chlamydia Psittaci IgA <1:16 titer (<1:16); Chlamydia Psittaci IgG <1:64 titer (<1:64); Chlamydia Psittaci IgM <1:10 titer (<1:10); Chlamydia Trachomatis IgA <1:16 titer (<1:16); Chlamydia Trachomatis IgG <1:64 titer (<1:64); Chlamydia Trachomatis IgM <1:10 titer (<1:10)
[2022-08-28 17:38] LABS: CT PCR DETECTED (Not Detect.); NG PCR NOT DETECTED (Not Detect.)
[2022-08-28 19:50] VITALS: BP 113/71; PULSE 116; TEMP 35.8
[2022-08-28] MEDS: Acetaminophen 325 MG TABLET 650 MG PO (19:53)
[2022-08-28] MEDS: traZODone HCL 100 MG TABLET PO (19:54)
[2022-08-28] MEDS: Melatonin 3 MG TABLET 9 MG PO (19:57)
[2022-08-28] MEDS: Phenazopyridine HCL 100 MG TABLET PO (20:08)
[2022-08-29] MEDS: LORazepam 1 MG TABLET PO ×4 (04:09→21:02)
[2022-08-29] MEDS: Cariprazine HCl 3 MG CAPSULE 6 MG PO (09:10)
[2022-08-29] MEDS: Phenazopyridine HCL 100 MG TABLET PO ×3 (09:11→15:45)
[2022-08-29] MEDS: metroNIDAZOLE 500 MG TABLET PO ×2 (09:11→21:02)
[2022-08-29] MEDS: OXcarbazepine 300 MG TABLET 600 MG PO ×2 (09:11→21:01)
[2022-08-29] MEDS: Sennosides 8.6 MG TABLET 17.2 MG PO (09:12)
[2022-08-29] MEDS: cloNIDine HCL 0.1 MG TABLET PO ×3 (09:12→21:00)
[2022-08-29 09:19] VITALS: BP 122/78; PULSE 88; RESP 16; TEMP 36.4; O2SAT 97
[2022-08-29] MEDS: Nicotine Polacrilex 2 MG GUM 4 MG BUCCAL ×6 (09:42→23:26)
[2022-08-29 12:54] LABS: BV Int Neg Control Negative (Negative); BV Int Pos Control Positive (Positive)
[2022-08-29] MEDS: Milk of Magnesia 30 ML ORAL.SUSP PO (16:24)
[2022-08-29 16:34] VITALS: BP 107/63; PULSE 104; TEMP 36.8; O2SAT 99
--- NOTE | 2022-08-29 17:23 | HO.PSYCHPN ---
Subjective Subjective Date of Service: 08/29/22 Reason For Visit: Unspec Schizophrenia Spectrum & Other Psychotic Subjective Notes: Conditional Voluntary and 3 Day Healthcare Proxy: No Guardianship: No Medical Problems Affecting Mental Status: No Interim History: Continues with intermittent lability. Calm, organized, clear in our meeting. Speaks quietly, clearly. This has been a good experience for me. Discussed that we could do more work if he would remain, he declines. Discussed with mom, [facility] services are approved, pt will accept. Mom is pleased, but wants pt to be fixed so he can go to college and begin his life. We discussed the chronic issues with illness with both pt and mom. Medication Compliance: Yes Side effects from medications: No Attending Groups: Intermittent Review of Systems Acute medical concerns: No Medical Review of Systems: unchanged Mental Status Exam Mental Status Exam Patient Appearance: Disheveled Patient Orientation: Person, Place, Time and Situation Level of Consciousness: Alert Patient Behavior: Appropriate, Talkative, Cooperative and Good Eye Contact Mood Description: Apprehensive Affect Description: Apprehensive Patient Cognition Impaired: No Ability to Follow Directions: Good Speech Pattern: Spontaneous Speech Memory Description: Remote Impaired and Episodic Impaired Hallucinations: None (denies) Perceptual Disturbances: Depersonalization and Derealization Thought Process: Distracted Thought Content: positive for [place], positive for Circumstantial, positive for Suicidal Ideation (denies) and positive for Homicidal Ideation (denies) Depressive Symptoms: Increased Anxiety and Diff. Making Decisions Abnormal Motor Activity Signs and Symptoms: Restlessness Judgement: Good Diagnostics Vital Signs (24Hr): Vital Signs - 24 hr 08/28/22 19:50 08/29/22 09:19 08/29/22 16:34 Temperature 96.4 F L 97.5 F 98.3 F Pulse Rate 116 H 88 104 H Respiratory Rate 16 Blood Pressure 113/71 122/78 107/63 Pulse Oximetry 97 99 Oxygen Delivery Method Room Air Room Air BMI result Body Mass Index 31.6 Labs Labs: Laboratory Results - last 48 hr 08/24/22 08/28/22 08/28/22 07:08 Unknown Unknown Puja species DNA Negative C. pneumoniae IgG Ab <1:64 C. pneumoniae IgA Ab <1:16 C. pneumoniae IgM Ab <1:10 C. pneumoniae Ab Interp see note C. trachomatis IgG Ab <1:64 C. trachomatis IgA Ab <1:16 C. trachomatis IgM Ab <1:10 C.trachomatis Ab Interp see note C. psittaci IgG Ab <1:64 C. psittaci IgA Ab <1:16 C. psittaci IgM Ab <1:10 C. psittaci Ab Interp see note Chlam trachomat DNA PCR DETECTED A Gardnerella DNA Probe Negative N.gonorrhoeae DNA (PCR) NOT DETECTED Trichomonas DNA Probe Negative Imaging Radiology Impressions: ITS Impressions Cervical Spine X-Ray 08/26/22 16:59 IMPRESSION: No fracture or dislocation seen. Lumbar Spine X-Ray 08/26/22 16:59 IMPRESSION: No fracture or dislocation seen. Thoracic Spine X-Ray 08/26/22 16:59 IMPRESSION: No fracture or dislocation seen. Pelvic/Transvag US 08/28/22 17:28 IMPRESSION: A 3.3 cm in maximal diameter simple right paraovarian cyst is incidentally noted. The examination is otherwise unremarkable. Medications Medications Current Medications Acetaminophen (Acetaminophen 325 Mg Tablet) 650 mg PO Q6H PRN PRN Reason: Headache/Pain Mild Scale (1-3) Last Admin: 08/28/22 19:53 Dose: 650 mg Al Hydroxide/Mg Hydroxide (Magnesium Hydrox/Alum Hydrox 30 Ml Oral.Susp) 30 ml PO Q6H PRN PRN Reason: Heartburn/Nausea Last Admin: 08/23/22 23:51 Dose: 30 ml Albuterol Sulfate (Albuterol Sulfate 90 Mcg 8 Gm Inhaler) 1 puff INHALE RQ4H PRN PRN Reason: wheeze Cariprazine (Cariprazine Hcl 3 Mg Capsule) 6 mg PO DAILY BELA Last Admin: 08/29/22 09:10 Dose: 6 mg Chlorpromazine HCl (Chlorpromazine Hcl 100 Mg Tablet) 100 mg PO BEDTIME BELA Last Admin: 08/28/22 21:28 Dose: Not Given Chlorpromazine HCl (Chlorpromazine Hcl 25 Mg Tablet) 50 mg PO QID PRN PRN Reason: psychosis/flashbacks Last Admin: 08/27/22 18:01 Dose: 50 mg Clonidine HCl (Clonidine Hcl 0.1 Mg Tablet) 0.1 mg PO TID BELA; Protocol Last Admin: 08/29/22 14:38 Dose: 0.1 mg Hydroxyzine HCl (Hydroxyzine Hcl 25 Mg Tablet) 25 mg PO Q6H PRN PRN Reason: Anxiety Last Admin: 08/28/22 20:05 Dose: 25 mg Lorazepam (Lorazepam 1 Mg Tablet) 1 mg PO Q4H PRN PRN Reason: psychosis, agitation Last Admin: 08/29/22 15:44 Dose: 1 mg Magnesium Hydroxide (Milk Of Magnesia 30 Ml Oral.Susp) 30 ml PO DAILY PRN PRN Reason: Constipation Last Admin: 08/29/22 16:24 Dose: 30 ml Melatonin (Melatonin 3 Mg Tablet) 9 mg PO BEDTIME [facility] Last Admin: 08/28/22 19:57 Dose: 9 mg Metronidazole (Metronidazole 500 Mg Tablet) 500 mg PO BID [facility] Stop: 08/30/22 09:00 Last Admin: 08/29/22 09:11 Dose: 500 mg Nicotine Polacrilex (Nicotine Polacrilex 2 Mg Gum) 4 mg BUCCAL Q2H PRN PRN Reason: Nicotine Cravings Last Admin: 08/29/22 16:24 Dose: 4 mg Oxcarbazepine (Oxcarbazepine 300 Mg Tablet) 600 mg PO BID [facility] Last Admin: 08/29/22 09:11 Dose: 600 mg Phenazopyridine HCl (Phenazopyridine Hcl 100 Mg Tablet) 100 mg PO TIDWM [facility] Stop: 08/30/22 12:01 Last Admin: 08/29/22 15:45 Dose: 100 mg Senna (Sennosides 8.6 Mg Tablet) 17.2 mg PO DAILY [facility] Last Admin: 08/29/22 09:12 Dose: 17.2 mg Trazodone HCl (Trazodone Hcl 100 Mg Tablet) 100 mg PO BEDTIME [facility] Last Admin: 08/28/22 19:54 Dose: 100 mg Allergies Allergies Allergy/AdvReac Type Severity Reaction Status Date / Time diphenhydramine Allergy Unknown Unknown Verified 08/28/22 14:34 [From Benadryl] Penicillins Allergy Unknown Unknown Verified 08/28/22 14:34 Assessment & Plan Assessment & Plan (1) Bipolar disorder with psychotic features: Status: Acute Code(s): F31.9 - Bipolar disorder, unspecified Assessment and Plan: 08/29/22: Continue current regime and plan Three day notice to 08/30. Pt planning discharge. (2) PTSD (post-traumatic stress disorder): Status: Acute Code(s): F43.10 - Post-traumatic stress disorder, unspecified Plan Gc/Ct and BV panel, pap, plan pelvic US Release records to outpatient [facility] office for follow up care pending results. All of his questions and concerns were addressed to the best of my ability and shared decision making. He is agreeable to the plan of care. Patient educated on: therapeutic strategies Informed Consent: understands and further education needed Reason for continued inpatient stay Substantial Risk for: rapid decompensation Time Spent With Patient Time: Total time managing care of this patient today ____ minutes.
[2022-08-29] MEDS: traZODone HCL 100 MG TABLET PO (21:00)
[2022-08-29] MEDS: Melatonin 3 MG TABLET 9 MG PO (21:01)
[2022-08-29] MEDS: chlorproMAZINE HCl 100 MG TABLET PO (21:02)
[2022-08-29] MEDS: chlorproMAZINE HCl 25 MG TABLET 50 MG PO (23:26)
[2022-08-30] MEDS: Nicotine Polacrilex 2 MG GUM 4 MG BUCCAL (08:05)
[2022-08-30] MEDS: Phenazopyridine HCL 100 MG TABLET PO (08:05)
[2022-08-30] MEDS: cloNIDine HCL 0.1 MG TABLET PO (08:05)
[2022-08-30] MEDS: OXcarbazepine 300 MG TABLET 600 MG PO (08:05)
[2022-08-30] MEDS: Cariprazine HCl 3 MG CAPSULE 6 MG PO (08:05)
[2022-08-30] MEDS: Sennosides 8.6 MG TABLET 17.2 MG PO (08:06)
[2022-08-30] MEDS: metroNIDAZOLE 500 MG TABLET PO (08:06)
[2022-08-30 08:09] VITALS: BP 116/80; PULSE 109; RESP 18; TEMP 36.9; O2SAT 99
[2022-08-30] MEDS: LORazepam 1 MG TABLET PO (09:10)
[2022-08-30] MEDS: Doxycycline Monohydrate 100 MG CAPSULE PO (09:10)
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
[2022-09-01 02:23] LABS: N. gonorrhoeae RNA TMA, Throat DETECTED
[2022-09-26 22:08] LABS: HPV 16 RNA NOT DETECTED (NOT DETECTED); HPV mRNA E6/E7 rflx Detected (Not Detected)
== END 2022-08-30 11:14 | disposition home or self-care (01) | DRG 753 ==
PROVIDERS: Advanced Practice Midwife; Admitting Provider Psychiatry & Neurology Psychiatry; PCP Nurse Practitioner Family; Visit Provider Clinical Nurse Specialist Psychiatric/Mental Health, Adult
DX: F31.9 Bipolar disorder, unspecified (principal); F43.10 Post-traumatic stress disorder, unspecified; N39.0 Urinary tract infection, site not specified; H50.9 Unspecified strabismus; F64.0 Transsexualism; F84.0 Autistic disorder; F90.9 Attention-deficit hyperactivity disorder, unspecified type; Z79.899 Other long term (current) drug therapy
CPT/HCPCS: 0353U; 36415; 72040; 72072; 72100; 76830; 76856; 80061; 82607; 82746; 83036; 83735; 84439; 84443; 84702; 86631; 86632; 86780; 87389; 87480; 87510; 87591; 87624; 87625; 87660; 88142; 93005

== ENCOUNTER → 2022-08-22 16:31 | Outpatient (BNV) | payer OTHER, SELFPAY | PROVIDERS: Admitting Provider Psychiatry & Neurology Psychiatry; PCP Nurse Practitioner Family; Visit Provider Psychiatry & Neurology Psychiatry | DX: F31.60 Bipolar disorder, current episode mixed, unspecified (principal); F43.11 Post-traumatic stress disorder, acute | CPT/HCPCS: 99231; 99232; 99233 ==

== ENCOUNTER 2022-08-28 14:30 | Outpatient (REF) | payer OTHER, SELFPAY | END 2022-08-28 14:31 | disposition home or self-care (01) | LOC: HO.LNP 14:30 | PROVIDERS: PCP Nurse Practitioner Family; Visit Provider Advanced Practice Midwife | DX: R10.2 Pelvic and perineal pain (principal) | CPT/HCPCS: 81003; 81025 ==

== ENCOUNTER 2022-08-28 15:04 | Outpatient (REF) | payer OTHER, SELFPAY | END 2022-08-28 15:05 | disposition home or self-care (01) | LOC: HO.LAB 15:04 | PROVIDERS: Visit Provider Advanced Practice Midwife | DX: Z13.89 Encounter for screening for other disorder (principal) ==

== ENCOUNTER 2023-08-05 09:30 | Emergency (ER) | payer MEDICAID, SELFPAY ==
[2023-08-05 09:43] VITALS: BP 138/92; PULSE 94
[2023-08-05 09:44] VITALS: BMI 36.0
--- NOTE | 2023-08-05 09:46 | PC.NURSE ---
PT BIBA on a voluntary basis from [employer] [place] the [place] for suicidal ideations. While at [employer] in the mall the patient opened up a jar of hair dye and proceeded to apply it all over her hair and head. Per report the patient has been acting manic, erratic and impulsive. The patient is calm, cooperative and pleasant with staff upon assessment. The patient denies thoughts of self-harm but endorses suicidal ideations saying she just doesn't want to be alive. No plan. The patient denies homicidal ideations. The patient denies auditory and visual hallucinations as well. The patient presents in a black dress and sandals, with hair dye covering her forehead, scalp and hair as well as her hands. The patient was encouraged to shower and agreed. Patient was changed over to hospital attire after cleaning off the hair dye. The patient reports chewing nicotine gum, drinking 1/2 a [employer] on 08/03, and using a THC vape pen prior to transport. Per report the patient has a history of: Pre-diabetes Asthma Anxiety Depression Bipolar Disorder [place]
--- NOTE | 2023-08-05 09:52 | ED_ITS ---
HPI - Psych General Chief Complaint: Psychiatric Symptoms Stated Complaint: SI FROM [place] PER EMS Time Seen by Provider: 08/05/23 09:33 Source: patient, EMS and old records reviewed Mode of arrival: EMS Limitations: no limitations History of Present Illness ED Provider: ZULAY SANDOVAL Narrative: 23 yo patient with PMH of bipolar, PTSD, asthma notes increasing feelings of SI and impulsive behaviors like stealing and then applied purple hair dye in [employer] and is now covered in dye on head and hands. Patient called 911 themselves. MD complaint: suicidal ideation, feels depressed and anxiety Onset (ago): day(s) (2) Duration: getting worse History of same: Yes Relieving factors: none Exacerbating factors: other Associated psychiatric symptoms: depression, suicidal ideation and racing thoughts Associated symptoms: denies other symptoms Treatments prior to arrival: none Related Data Home Medications ?Medication ?Instructions ?Recorded ?Confirmed triamcinolone acetonide 0.1 % appl topical TID PRN skin 08/22/22 topical cream Previous Rx's ?Medication ?Instructions ?Recorded albuterol sulfate 90 mcg/actuation 2 puff inhalation Q4H PRN wheezing 08/30/22 aerosol inhaler (Ventolin HFA) #1 inhaler cariprazine 6 mg capsule (Vraylar) 6 mg PO DAILY #30 caps 08/30/22 chlorpromazine 100 mg tablet 100 mg PO BEDTIME #14 tabs 08/30/22 clonidine HCl 0.1 mg tablet 0.1 mg PO TID #45 tabs 08/30/22 doxycycline monohydrate 100 mg 100 mg PO Q12H #14 caps 08/30/22 capsule lorazepam 1 mg tablet 1 mg PO BID anxiety #14 tabs 08/30/22 melatonin 3 mg tablet 9 mg (3 x 3 mg) PO BEDTIME 08/30/22 insomnia #45 tabs oxcarbazepine 300 mg tablet 600 mg (2 x 300 mg) PO BID #30 tabs 08/30/22 sennosides 8.6 mg tablet (senna) 17.2 mg (2 x 8.6 mg) PO DAILY #30 08/30/22 tabs trazodone 100 mg tablet 100 mg PO BEDTIME #15 tabs 08/30/22 trazodone 50 mg tablet 50 mg PO BEDTIME PRN insomnia #15 08/30/22 tabs Allergies Allergy/AdvReac Type Severity Reaction Status Date / Time diphenhydramine Allergy Unknown Unknown Verified 08/05/23 09:45 [From Benadryl] Penicillins Allergy Unknown Unknown Verified 08/05/23 09:45 Review of Systems Review of Systems: Constitutional : No Fever, No Chills ENT/Mouth : No Ear Pain, No Nasal Congestion, No sore throat Eyes: No Eye Pain, No Swelling, No Redness Cardiovascular : No Chest Pain, No SOB Respiratory : No Cough, No Sputum, No Dyspnea Gastrointestinal : No Nausea, No Vomiting, No Diarrhea, No Hematochezia, No Melena Genitourinary : No Dysuria, No Urinary Frequency, No Hematuria Musculoskeletal : No Myalgias Skin : No Skin Lesions, No rash Neuro : No Weakness, No Numbness, No Paresthesias, No Dizziness, No Headache Psych : positive Anxiety, positive Depression, positive SI no HI All other systems reviewed and are negative PMFSH Past Medical History Attestation statement: The following information was validated with the patient. Source: old records reviewed Medical History Dysuria Pelvic pain Bipolar disorder with psychotic features PTSD (post-traumatic stress disorder) Depression Bipolar 1 disorder Borderline personality disorder Anxiety Social History Social History Household Members: Family Housing: House Do you presently have visiting nurse or other home services: Yes Alcohol intake: current Alcohol intake frequency: a few times a week Patient Tobacco Use Status: Never used Tobacco Substance Use Type: Marijuana service: No Sexual orientation: nonbinary Physical Exam Vital Signs: Vital Signs: BMI result Body Mass Index 36.0 Appearance: Alert. Oriented X3. No acute distress. deep purple hair dye on hands and scalp going onto the face Eyes: Pupils equal, round and reactive to light. ENT: Pharynx normal. Neck: Normal inspection. Neck supple. CVS: Normal heart rate and rhythm. Pulses normal. Respiratory: No respiratory distress. Breath sounds normal. Abdomen: Soft and nontender. Skin: Skin warm and dry. Normal skin color. Normal skin turgor. Extremities: No lower extremity edema. No calf ttp Neuro: Oriented X 3. No motor deficit. No sensory deficit. Cn2-12 intact Medical Decision Making Medical Decision Making MDM Narrative: 23 yo patient with PMH of bipolar, PTSD, asthma here with SI and impulsive behaviors denies medical complaints at this time labs and CARE team consult ordered Differential Diagnosis Differential Diagnoses: The differential diagnosis associated with the presentation includes SI, bipolar disorder Admission/Observation Consideration of admission/observation: Escalation of care including admission/observation considered physician observation started at 10am pending CARE team input Consult Healthcare Provider Management of the patient was discussed with: Behavioral Health Provider Lab Data MDM Lab Attestation statement: I reviewed the patient's lab results. External Record Review External record reviewed: Inpatient record Discharge Plan Discharge Clinical Impression: Suicidal ideation Patient Disposition: Still a Patient Prescriptions: No Action triamcinolone acetonide 0.1 % cream topical TID PRN (Reason: skin) doxycycline monohydrate 100 mg Capsule 100 mg PO Q12H Qty: 14 0RF oxcarbazepine 300 mg Tablet 600 mg PO BID Qty: 30 1RF Vraylar 6 mg capsule 6 mg PO DAILY Qty: 30 0RF sennosides [senna] 8.6 mg tablet 17.2 mg PO DAILY Qty: 30 0RF clonidine HCl 0.1 mg tablet 0.1 mg PO TID Qty: 45 1RF trazodone 50 mg tablet 50 mg PO BEDTIME PRN (Reason: insomnia) Qty: 15 0RF chlorpromazine 100 mg tablet 100 mg PO BEDTIME Qty: 14 1RF melatonin 3 mg tablet 9 mg PO BEDTIME Qty: 45 1RF trazodone 100 mg tablet 100 mg PO BEDTIME Qty: 15 1RF lorazepam 1 mg tablet 1 mg PO BID Qty: 14 4RF albuterol sulfate [Ventolin HFA] 90 mcg/actuation HFA aerosol inhaler 2 puff INHALATION Q4H PRN (Reason: wheezing) Qty: 1 0RF Print Language: Croatian
[2023-08-05 10:16] LABS: Appearance Urine Cloudy; Color Urine Yellow; Glucose Urine UA Negative (Negative); Leukocyte Esterase Urine Trace (Negative); Nitrite Urine Negative (Negative); PH 6.5 (5.0-9.0); Specific Gravity - Urine >= 1.030 (1.005-1.025); UMIC TRIGGER UACC YES; Urine Blood Negative (Negative); Urine Ketones Trace mg/dL (Negative); Urine Protein Trace mg/dL (Neg-Trace)
[2023-08-05 10:25] LABS: Amphetamine Screen Urine Not Detected (Not Detect); Barbiturates, Urine Not Detected (Not Detect); Benzodiazepines Screen Urine Not Detected (Not Detect); Buprenorphine Scr Not Detected (Not Detect); Cannabinoid Screen Urine POSITIVE (Not Detect); Cocaine Screen Urine Not Detected (Not Detect); Fentanyl, urine Not Detected (Not Detect); Methadone Screen, Urine Not Detected (Not Detect); Opiate Screen Urine Not Detected (Not Detect); Oxycodone Screen Urine Not Detected (Not Detect); Phencyclidine Screen Urine Not Detected (Not Detect)
[2023-08-05 10:30] LABS: MANUAL DIFF FLAG NO
[2023-08-05 10:34] LABS: Basophils Percent Auto 0.2 % (0-2); Eosinophils Absolute Auto 0.2 X10*3/uL (0.0-0.4); Hematocrit 34.8 % (37.0-47.0); Hemoglobin 11.7 g/dl (12.0-16.0); Imm Gran Abs Auto 0.09 X10*3/uL (0.00-0.03); Imm Gran Pct Auto 0.8 % (0.0-0.4); Lymphocytes Absolute Auto 2.5 X10*3/uL (1.2-4.9); Lymphocytes Percent Auto 22.1 % (20-40); Mean Corpuscular HGB Conc 33.6 g/dl (31.0-35.0); Mean Corpuscular Hemoglobin 29.2 pg (27.0-33.0); Mean Corpuscular Volume 86.8 fL (80.0-98.0); Mean Platelet Volume 8.4 fL (9.4-12.3); Monocytes Absolute Auto 0.9 X10*3/uL (0.1-1.2); Monocytes Percent Auto 8.3 % (2-11); Neutrophils Absolute Auto 7.4 x10*3/uL (2.0-8.3); Neutrophils Percent Auto 66.6 % (45-73); Platelet Count 306 X10*3/uL (160-400); Red Blood Count 4.01 X10*6/uL (4.20-5.50); Red Cell Distribution Width 14.5 % (11.0-16.0); White Blood Count 11.2 X10*3/uL (4.8-10.8)
[2023-08-05 10:35] VITALS: BP 132/69; PULSE 95; RESP 18; TEMP 36.6; O2SAT 96
[2023-08-05 10:39] LABS: Bacteria Urine 4+ (None Seen); Hyaline Casts Urine 0-2 /LPF (0-2); RBC Urine 0-2 /HPF (0-2); Squamous Epithelial Cell Urine >20 /HPF (0-2); UACC Culture Trigger YES; WBC Urine 21-50 /HPF (0-5)
[2023-08-05 10:52] LABS: Alanine Aminotransferase 11 U/L (0-31); Albumin Level 3.7 g/dL (3.5-5.0); Alkaline Phosphatase 68 U/L (39-117); Anion Gap 15 (12-20); Aspartate Amino Transferase 14 U/L (5-31); Bilirubin Total 0.2 mg/dL (0.0-1.0); Blood Urea Nitrogen 14 mg/dL (9-16); Calcium 9.1 mg/dL (8.4-10.2); Carbon Dioxide 22 mmol/L (22-29); Chloride 107 mmol/L (96-108); Creatinine Clr Calc Pharmacy 141.1; Estimated Glomerular Filt Rate > 60; Ethanol < 10 mg/dL; Glucose Random 143 mg/dL (60-115); Potassium 3.7 mmol/L (3.3-5.1); Sodium 140 mmol/L (135-145); Total Protein 7.4 g/dL (6.5-8.0)
[2023-08-05 10:56] LABS: Valproate 60.5 mcg/mL (50.0-100.0)
[2023-08-05 11:00] LABS: HCG Quantitative < 2 mIU/mL
--- NOTE | 2023-08-05 19:37 | PC.NURSE ---
patient appears to remain at rest at present respirations are even and unlabored patient appears in no distress
[2023-08-05] MEDS: QUEtiapine Fumarate 200 MG TABLET PO (20:20)
[2023-08-05] MEDS: Melatonin 3 MG TABLET 6 MG PO (20:20)
[2023-08-05] MEDS: HaloperidoL 5 MG TABLET PO (20:21)
[2023-08-05] MEDS: Benztropine Mesylate 1 MG TABLET PO (20:21)
[2023-08-05] MEDS: Divalproex Sodium 250 MG TABLET.DR 750 MG PO (20:21)
[2023-08-06 04:55] VITALS: BP 117/62; PULSE 76; RESP 17; TEMP 37.1; O2SAT 99
[2023-08-06 08:02] VITALS: BP 126/65; PULSE 93; RESP 16; TEMP 36.9; O2SAT 99
[2023-08-06] MEDS: Divalproex Sodium 250 MG TABLET.DR 750 MG PO (08:17)
[2023-08-06] MEDS: QUEtiapine Fumarate 200 MG TABLET PO (08:17)
[2023-08-06] MEDS: Benztropine Mesylate 1 MG TABLET PO (08:17)
[2023-08-06] MEDS: HaloperidoL 5 MG TABLET PO ×2 (08:31→14:56)
--- NOTE | 2023-08-06 14:34 | MHC.CARE ---
Addendum entered by Jose Zepeda, MS 08/06/23 14:37: [facility] - [address] [place] [address] [facility] - [address] [place] [address] [facility] - [address], [place], [place] Original Note: Pt has been accepted to [facility] for a 6:00PM arrival time. Pt will need to be Lyfted to [facility] in [place] to collect her medications, then (potentially) to [facility] on [facility] to collect refills on a few medications, and finally Lyfted to [facility] program.
[2023-08-06 15:06] VITALS: BP 126/65; PULSE 93; RESP 16; TEMP 36.9; O2SAT 99
--- NOTE | 2023-08-06 17:40 | MHC.CARE ---
5:00 pm CARE Team has note heard from patient about L[facility]FT from [facility] to [facility] for 6:00 pm intake, call to her listed number--no voicemail set up.
--- NOTE | 2023-08-06 17:55 | MHC.CARE ---
Pt was scheduled to arrive at [facility]'s [facility] by 1800 hours on this date. The plan was to Lyft her to [facility] doors in [facility] to collect her prescriptions then, once she had them, CARE would Lyft her to [facility]. Pt was instructed to call CARE Team when she had her medications so a new Lyft could be ordered. Pt never called. CARE Team called pt, no answer, no message was left as pt's mailbox was not set up.
== END 2023-08-06 15:19 | disposition home or self-care (01) ==
PROVIDERS: Emergency Provider Emergency Medicine
DX: R45.851 Suicidal ideations (principal); F31.9 Bipolar disorder, unspecified; F43.10 Post-traumatic stress disorder, unspecified; F60.3 Borderline personality disorder; F41.9 Anxiety disorder, unspecified; J45.909 Unspecified asthma, uncomplicated; Z79.899 Other long term (current) drug therapy
CPT/HCPCS: 36415; 80053; 80164; 80307; 81001; 84702; 85025; 87086; 99284; S9485

== ENCOUNTER 2023-12-10 11:00 | Emergency (ER) | payer MEDICAID, SELFPAY ==
--- NOTE | ~2023-12-10 | XR_ITS ---
EXAMINATION: XR ABDOMEN KUB CLINICAL INDICATION: Constipation COMPARISON: None available. TECHNIQUE: AP view of the abdomen. FINDINGS: Fecal material is present throughout the entire colon. No dilated small bowel loops are evident. There are no radial opaque calculi. Osseous structures are intact. XR/XR KUB IMPRESSION: Fecal material throughout the entire colon compatible with moderate constipation. No dilated small bowel. Electronically signed by: Ghanshyam Byrd MD 12/10/2023 01:18 PM EDT
[2023-12-10 11:33] VITALS: BP 122/60; PULSE 75; RESP 16; TEMP 36.8; O2SAT 97; BMI 41.1
--- NOTE | 2023-12-10 11:47 | ED.GENADULT ---
HPI - General Adult General Chief complaint: Abdominal Pain Stated complaint: bowel obstruction-constipation Time Seen by Provider: 12/10/23 16:36 Source: patient Mode of arrival: ambulatory Limitations: no limitations History of Present Illness ED Provider: Catherine LASSITER HPI narrative: 23 yold with past medical history of posttraumatic stress disorder and bipolar presents to ED for constipation for the past 6 days. Patient has history of chronic constipation. Patient states was seen at [facility] recently for similar event and was given enema. Patient denies any nausea vomiting. Patient denies any genitourinary symptoms. Related Data Home Medications ?Medication ?Instructions ?Recorded ?Confirmed atomoxetine 40 mg capsule 40 mg PO QAM 08/05/23 08/05/23 benztropine 1 mg tablet 1 mg PO BID 08/05/23 08/05/23 divalproex 250 mg tablet,delayed 750 mg PO BID 08/05/23 08/05/23 release haloperidol 5 mg tablet 5 mg PO TID PRN psychosis 08/05/23 08/05/23 hydroxyzine HCl 25 mg tablet 50 mg PO TID PRN anxiety 08/05/23 08/05/23 melatonin 5 mg tablet 5 mg PO BEDTIME 08/05/23 08/05/23 quetiapine 200 mg tablet 200 mg PO BID 08/05/23 08/05/23 trazodone 50 mg tablet 50 mg PO BEDTIME PRN insomnia 08/05/23 08/05/23 Previous Rx's ?Medication ?Instructions ?Recorded albuterol sulfate 90 mcg/actuation 2 puff inhalation Q4H PRN wheezing 08/30/22 aerosol inhaler (Ventolin HFA) #1 inhaler polyethylene glycol 3350 17 17 g PO DAILY #119 grams 12/10/23 gram/dose oral powder sodium phosphates 19 gram-7 118 ml MS DAILY 2 days #133 mL 12/10/23 gram/118 mL enema (Fleet Enema) Allergies Allergy/AdvReac Type Severity Reaction Status Date / Time diphenhydramine Allergy Unknown Unknown Verified 12/10/23 11:36 [From Benadryl] Penicillins Allergy Unknown Unknown Verified 12/10/23 11:36 Review of Systems Review of Systems: Constipation Yes all other systems are reviewed and are negative PMFSH Past Medical History Medical History Dysuria Pelvic pain Bipolar disorder with psychotic features PTSD (post-traumatic stress disorder) Depression Bipolar 1 disorder Borderline personality disorder Anxiety Social History Social History Household Members: Family Housing: House Do you presently have visiting nurse or other home services: Yes Unable to assess alcohol history related to: Unknown Alcohol intake: current Alcohol intake frequency: a few times a week Alcohol type: beer Patient Tobacco Use Status: Never used Tobacco Substance Use Type: Marijuana Advance Directives: No Advance Directives Information Provided: No service: No Sexual orientation: nonbinary Physical Exam ED Vital Signs: Vital Signs - 24 hr 12/10/23 11:33 12/10/23 16:41 Temperature 98.3 F 98.6 F Pulse Rate 75 85 Respiratory Rate 16 16 Blood Pressure 122/60 109/67 Pulse Oximetry 97 95 Oxygen Delivery Method Room Air Room Air BMI result Body Mass Index 41.1 Const General: cooperative, healthy appearing, comfortable, no acute distress, well developed, alert, awake and Physically active Orientation/consciousness: patient oriented x3 HENMT Head: Yes normal to inspection, Yes No palpable skull fracture present, Yes normocephalic and Yes atraumatic Eyes General: appearance normal, both eyes and all related structures Neck Neck: Yes normal visual inspection, Yes full ROM, Yes no lymphadenopathy, Yes no meningeal signs, Yes trachea midline, Yes supple, No anterior neck swelling and No tender Chest Chest palpation & inspection: normal inspection of the chest and normal palpation of entire chest wall Resp Effort & Inspection: normal respiratory effort and able to speak in complete sentences Auscultation: clear to auscultation bilaterally Cardio Jugular venous distension: no JVD Heart sounds: S1 normal heart sound present and S2 normal heart sound present GI Inspection: Yes normal to inspection Palpation (GI): Soft to palpation, not firm, nontender, no guarding and not rigid General: No CVA tenderness and Yes no CVA tenderness Back/Spine/Pelvis Back: no CVA tenderness, No CVA tenderness and No back tenderness Skin General skin exam: no rashes or lesions noted, elasticity normal and turgor normal Neuro General: patient oriented x3, gait normal, tone normal, moves all extremities, Normal light touch and pain sensation, no meningeal signs, no focal motor deficits, CN's II-XI intact bilaterally and normal sensation to monofilament Extrem General: Yes normal to inspection, Yes full ROM and Yes capillary refill normal Psych Appearance: grossly normal, well kempt and not disheveled Course Course Course Narrative: RME: DOne by TASIA Crane. 23-year-old female presents to the ED for constipation for 6 days. Patient was recently seen at [facility] for the same issue was given enema. Patient denies any urinary symptoms. KUB UA UCG ordered. Abdomen is benign. Medical Decision Making Medical Decision Making [facility] Narrative: 23 year old female presents to ED for constipation for 6 days. Patient denies nausea but no vomiting. Patient denies any blood in the stool or abdominal pain. Patient states no fever or chills. Patient denies any genitourinary symptoms. Patient states history of constipation with relief with enema at [facility]. Abdomen benign and soft. Negative for CVA flanks. UA negative for UTI. Abdominal x-ray shows profuse stool constipation. Negative for signs of fecal impaction. Patient will be discharged with GoLYTELY and requesting flu and suppository. Patient has history of chronic constipation informed to follow up with Gastroenterology. Not suspecting small bowel obstruction, appendicitis, ectopic , ovarian torsion, pancreatitis, cholecystitis, myocardial infarction, colitis, kidney stones, UTI, pyelonephritis, or any other life-threatening injury. Patient explained worrisome signs and informed to follow up with ED immediately. Patient informed only to use GoLYTELY for 2 days. Patient requesting Fleet enema Differential Diagnosis Differential Diagnoses: The differential diagnosis associated with the presentation includes (Constipation, small-bowel obstruction, UTI) Admission/Observation Consideration of admission/observation: Escalation of care including admission/observation considered Lab Data [facility] Lab Attestation statement: I reviewed the patient's lab results. Labs: Lab Results 12/10/23 Range/Units 14:38 Urine Color Yellow Urine Appearance Clear Urine pH 7.5 (5.0-9.0) Ur Specific [place] 1.010 (1.005-1.025) Urine Protein Negative (Neg-Trace) mg/dL Urine Glucose (UA) Negative (Negative) mg/dL Urine Ketones Negative (Negative) mg/dL Urine Blood Negative (Negative) Urine Nitrite Negative (Negative) Ur Leukocyte Esterase Trace H (Negative) Urine RBC 0-2 (0-2) /HPF Urine WBC 0-5 (0-5) /HPF Ur Squamous Epith Cells 6-10 (0-2) /HPF Urine Bacteria None Seen (None Seen) Hyaline Casts 0-2 (0-2) /LPF Urine Test NEGATIVE (NEGATIVE) Independent Interpretation I performed an independent interpretation of an: Plain X-Ray Radiology Impression Discussion of test interpretation with radiology: I have reviewed the radiologist's reading. Independent Historian Clinical information obtained from an independent historian. History obtained from or confirmed by: Other (Patient) External Record Review External record reviewed: Other (Prior visits) Prescription Management I considered prescription management with: Other (golytelety, enema) Discharge Plan Discharge Clinical Impression: Constipation Patient Disposition: Home, Self-Care Instructions: Constipation (ED) Additional Instructions: Recommend follow-up with primary care provider and radio survey worker. Return to the ED for abdominal pain, nausea, vomiting, dysuria, hematuria, fever, chills, or any other concerning symptoms. Golytely ( polethylene glycol) only use for two days. FINDINGS: Fecal material is present throughout the entire colon. No dilated small bowel loops are evident. There are no radial opaque calculi. Osseous structures are intact. XR/XR KUB IMPRESSION: Fecal material throughout the entire colon compatible with moderate constipation. No dilated small bowel. Electronically signed by: Ghanshyam Byrd MD 12/10/2023 01:18 PM EDT Dictated By: Ghanshyam Byrd MD Signed By: <Electronically signed by Ghanshyam Byrd MD in [place]> Prescriptions: New polyethylene glycol 3350 17 gram/dose powder 17 g PO DAILY Qty: 119 0RF Fleet Enema 19-7 gram/118 mL enema 118 ml MS DAILY 2 Days Qty: 133 0RF No Action albuterol sulfate [Ventolin HFA] 90 mcg/actuation HFA aerosol inhaler 2 puff INHALATION Q4H PRN (Reason: wheezing) Qty: 1 0RF haloperidol 5 mg tablet 5 mg PO TID PRN (Reason: psychosis) divalproex 250 mg tablet,delayed release (DR/EC) 750 mg PO BID trazodone 50 mg tablet 50 mg PO BEDTIME PRN (Reason: insomnia) quetiapine 200 mg tablet 200 mg PO BID benztropine 1 mg tablet 1 mg PO BID hydroxyzine HCl 25 mg tablet 50 mg PO TID PRN (Reason: anxiety) atomoxetine 40 mg capsule 40 mg PO QAM melatonin 5 mg tablet 5 mg PO BEDTIME Referrals: [facility] [place] Gastroenterology Services [Provider Group] (Chronic constipation) Interventions: ED Discharge Assessment Last Done: 12/10/23 16:41 Discharge Date/Time: 12/10/23 16:45 Print Language: Maori
[2023-12-10 15:06] LABS: Appearance Urine Clear; Color Urine Yellow; Glucose Urine UA Negative (Negative); Leukocyte Esterase Urine Trace (Negative); Nitrite Urine Negative (Negative); PH 7.5 (5.0-9.0); UMIC TRIGGER UACC YES; Urine Blood Negative (Negative); Urine Ketones Negative (Negative); Urine Protein Negative (Neg-Trace)
[2023-12-10 15:11] LABS: Bacteria Urine None Seen (None Seen); Hyaline Casts Urine 0-2 /LPF (0-2); RBC Urine 0-2 /HPF (0-2); WBC Urine 0-5 /HPF (0-5)
[2023-12-10 16:30] LABS: UPreg QC Valid YES; Urine Pregnancy NEGATIVE (NEGATIVE)
[2023-12-10 16:41] VITALS: BP 109/67; PULSE 85; RESP 16; TEMP 37; O2SAT 95
== END 2023-12-10 16:45 | disposition home or self-care (01) ==
PROVIDERS: Physician Assistant; Emergency Provider Internal Medicine
DX: K59.00 Constipation, unspecified (principal); F43.10 Post-traumatic stress disorder, unspecified
CPT/HCPCS: 74018; 81001; 81003; 81025; 99282; 99283